=== PATIENT | male | born 1975 | race Caucasian/White ===

== ENCOUNTER 2017-02-17 21:02 | Emergency (ER) | payer BC, OTHER ==
[~2017-02-17] VITALS: Ht 188 cm; Wt 78.1 kg
[~2017-02-17 21:02] MED LIST: ASCO1POW10 PO
[2017-02-17 21:17] VITALS: BP 126/67; PULSE 107; TEMP 36.6; O2SAT 96; Ht 188 cm; Wt 78.1 kg
--- NOTE | 2017-02-17 22:17 | DIAGNOSTIC IMAGING REPORT ---
LEFT KNEE 3 VIEWS CLINICAL HISTORY: Left knee pain and swelling. COMPARISON: None FINDINGS: Note is made of a bipartite patella. No acute fracture or joint effusion is identified. There is marked infrapatellar soft tissue swelling located anterior to the patellar tendon. IMPRESSION: 1. No acute fracture or joint effusion of the left knee. 2. Marked infrapatellar soft tissue swelling located anterior to the patellar tendon. This could reflect a bursitis or cellulitis. 3. Bipartite patella. Electronically signed by: Fidel Eduardo M.D. 02/17/2017 10:16 PM Dictated Date/Time: 02/17/2017 10:15 PM
--- NOTE | 2017-02-17 22:34 | EMERGENCY ROOM VISIT NOTE ---
ED Visit Note First contact with patient: 21:22 CHIEF COMPLAINT: Left knee swelling acutely this afternoon HISTORY OF PRESENT ILLNESS: Patient is a 41-year-old white male who presents to emergency department for evaluation of swelling of the left knee that began acutely this afternoon. 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 The left knee fairly abruptly, became acutely swollen. He states that the swelling made his knee feels stiff, and made it difficult to bear weight or bend the knee. He describes the pain as a burning discomfort that he rates a 5/10. He took ibuprofen, and his gave him a Keflex tablet that a family member had left lower from a skin infection. He does have a history of MRSA. The patient denies any fever, chills, malaise, nausea or vomiting. He ambulates in using a 2 x 4 as a crutch. He denies any recent tick bites, or risk for Lyme disease. REVIEW OF SYSTEMS: Review of systems as per HPI. All other systems reviewed were negative. At least 6 systems reviewed. PMH: Electronic medical records are reviewed and summarized as above/below. See Problem List. That state. SOCIAL HISTORY: Patient lives at home with his . Former smoker. PHYSICAL EXAM: Vital Signs: Reviewed Nurse's notes. MENTAL STATUS: Well- appearing 41-year-old white male who is awake and alert and in no acute distress. HEART: Regular rate and rhythm. LUNGS: Clear to auscultation. KNEE: Examination of the left knee show prepatellar soft tissue swelling, noted inferiorly over the anterior knee, more over the tibial tuberosity and the patellar tendon, rather than over the patella. There is no real significant knee joint effusion palpable. The patient can flex and extend fully. The patellar tendon region is slightly tender to palpation. Skin is otherwise intact, multiple tattoos are noted, but no punctures, abrasions or superficial cuts are present. The skin is not hot, erythematous or overtly cellulitic. The left lower extremity is neurovascularly intact. EMERGENCY DEPARTMENT COURSE: The patient was seen and evaluated as above. His old records are reviewed. He did have a superficial MRSA infection involving the right knee several years ago. His presentation today appears more consistent with an inflammatory process rather than infectious. He kneels on his legs frequently for his job, which could have precipitated a patellar tendinitis or a bursitis. X-rays of the left knee confirmed infrapatellar soft tissue swelling anterior to the patellar tendon. There was no significant intra -articular joint effusion. Based on exam I do not suspect cellulitis or septic joint. I think he has a tendinitis from kneeling on the knee. The patient was completely adamant that he would not tolerate any type of blood draw or knee aspiration for further workup, fortunately at this point it do not think that it is necessary, however given his history of MRSA, infectious source was certainly considered. Differential diagnoses also entertained included knee sprain, Lyme arthritis, among others. Worsening signs of infection were reviewed with the patient and he was counseled at length regarding reasons for which she should return to the emergency department. The patient declined crutches. He left prior to receiving his written discharge instructions although oral instructions were provided. Medication reconciliation: I attest that I have personally reviewed the patient' s current medication list. Blood pressure screening : Patient was found to have normal blood pressure on screening and does not require follow-up. LEFT KNEE 3 VIEWS CLINICAL HISTORY: Left knee pain and swelling. COMPARISON: None FINDINGS: Note is made of a bipartite patella. No acute fracture or joint effusion is identified. There is marked infrapatellar soft tissue swelling located anterior to the patellar tendon. IMPRESSION: 1. No acute fracture or joint effusion of the left knee. 2. Marked infrapatellar soft tissue swelling located anterior to the patellar tendon. This could reflect a bursitis or cellulitis. 3. Bipartite patella. 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 (6) Wound infection Status: Resolved Surgical Problems: (1) Fracture Calcaneus-Close Status: Resolved (2) Status post ORIF of fracture of ankle Status: Resolved Current/Historical Medications Scheduled Ascorbic Acid (Vitamin C), 1 DOSE PO QAM Allergies Coded Allergies: No Known Allergies (Verified , `, 09/25/15) Vital Signs Date Time Temp Pulse Resp B/P (MAP) Pulse Ox O2 Delivery O2 Flow Rate FiO2 02/17/17 21:17 36.6 107 18 126/67 96 Room Air Departure Information Impression Primary Impression: Swelling of left knee joint Referrals No Doctor, Assigned (PCP) Patient Instructions My [facility] Additional Instructions Ibuprofen(Motrin, Advil) may be used for fever or pain. Use 600mg every six hours as needed. Take with food. Avoid using more than 2400mg in a 24 hour period. Do not use 2400mg per day for more than three consecutive days without physician direction. Prolonged inappropriate use can lead to stomach upset or ulcers. This medication can be taken if you need to drive, work, or perform activities which may be dangerous when taking narcotic pain medication. (AND/OR) Acetaminophen(Tylenol) may be used for fever or pain. Use 1000mg every six hours as needed. Avoid using more than 3000mg in a 24 hour period. This medication can be taken if you need to drive, work, or perform activities which may be dangerous when taking narcotic pain medication. Ice compresses for 20 minutes at a time four times daily for 2-3 days. Rest and elevate your injury. Continue current medications. Return to the ER immediately for increasing redness, warmth, signs of infection including pimples or drainage, any numbness, tingling, severe pain, extreme swelling in the extremity or as needed. Follow up with your primary care provider this week for recheck.
== END 2017-02-17 22:43 | disposition admitted as inpatient to this hospital (09) ==
LOC: C.EDB 21:03 → C.EDD 22:43
DX: M25.462 Effusion, left knee (principal); B19.20 Unspecified viral hepatitis C without hepatic coma; Z86.14 Personal history of Methicillin resistant Staphylococcus aureus infection; Z87.891 Personal history of nicotine dependence; Z87.828 Personal history of other (healed) physical injury and trauma